=== PATIENT | female | born 1945 | race Asian ===

== ENCOUNTER 2018-01-22 15:04 | Emergency (ER) | payer OTHER ==
[~2018-01-22] VITALS: Ht 167.6 cm; Wt 65.8 kg
[2018-01-22 15:19] VITALS: BP 165/72
[2018-01-22] MEDS ORDERED: ROSU10TA PO (15:43)
[2018-01-22] MEDS ORDERED: PAX20 PO (15:43)
[2018-01-22] MEDS ORDERED: ARIP30TA1 PO (15:43)
[2018-01-22] MEDS ORDERED: OLAN20TA1 PO (15:43)
[2018-01-22] MEDS: KETOROLAC 60 MG/2 ML VIAL IM ONE (15:51)
[2018-01-22 16:04] VITALS: BP 165/72
== END 2018-01-22 16:05 | disposition home or self-care (01) ==
LOC: MED 15:04
DX: S92.331A Displaced fracture of third metatarsal bone, right foot, initial encounter for closed fracture (principal); R03.0 Elevated blood-pressure reading, without diagnosis of hypertension; Z79.899 Other long term (current) drug therapy; W01.0XXA Fall on same level from slipping, tripping and stumbling without subsequent striking against object, initial encounter; Y93.89 Activity, other specified; Y92.89 Other specified places as the place of occurrence of the external cause; Y99.8 Other external cause status
CPT/HCPCS: 29515; 73610; 73630; 96372; 99283; J1885; Q0092

== ENCOUNTER 2019-11-05 11:42 | Emergency (ER) | payer OTHER ==
[~2019-11-05] VITALS: Ht 165.1 cm; Wt 65.3 kg
[~2019-11-05 11:42] MED LIST: ARIP30TA1 PO; OLAN20TA1 PO; PAX20 PO; ROSU10TA1 PO
[2019-11-05 11:53] VITALS: BP 143/68
--- NOTE | 2019-11-05 11:57 | NUR ---
74 y/o female from home c/o right sided lower back pain s/p fall 2 days ago. Pt denies LOC. No deformities noted. Pt able to ambulate with unsteady gait. 9/10 constant aching pain. Awake and alert. Skin warm, dry, intact. VSS medhx: denies
--- NOTE | 2019-11-05 12:58 | NUR ---
Dr Russ at bedside examining pt
--- NOTE | 2019-11-05 14:11 | NUR ---
Pt awake and alert positioned for comfort. x 1 side rail raised, bed locked and in lowest position. VSS
[2019-11-05 14:39] VITALS: BP 121/75
--- NOTE | 2019-11-05 14:39 | NUR ---
Patient discharged with v/s stable. Written and verbal after care instructions given and explained. Patient alert, oriented and verbalized understanding of instructions. Ambulatory with steady gait. All questions addressed prior to discharge. ID band removed. Patient advised to follow up with PMD. Rx of [place] 5mg-325mg and zofran 4mg ODT given. Patient educated on indication of medication including possible reaction and side effects. Opportunity to ask questions provided and answered.
== END 2019-11-05 14:39 | disposition home or self-care (01) ==
LOC: MED 11:42
DX: S22.42XA Multiple fractures of ribs, left side, initial encounter for closed fracture (principal); Z79.899 Other long term (current) drug therapy; W18.30XA Fall on same level, unspecified, initial encounter; Y93.89 Activity, other specified; Y92.89 Other specified places as the place of occurrence of the external cause; Y99.8 Other external cause status
CPT/HCPCS: 71101; 99283